=== PATIENT | male | born 1995 | race Caucasian/White ===

== ENCOUNTER → 2019-08-13 18:22 | Outpatient (BNVA) | payer BC, SELFPAY | PROVIDERS: Visit Provider Nurse Practitioner Family | DX: R50.9 Fever, unspecified (principal); J01.00 Acute maxillary sinusitis, unspecified | CPT/HCPCS: 87081; 87880 ==

== ENCOUNTER → 2019-12-03 11:15 | Outpatient (BNVA) | payer BC, SELFPAY | PROVIDERS: Visit Provider Nurse Practitioner Family | DX: R50.9 Fever, unspecified (principal); R05 Cough | CPT/HCPCS: 87635 ==

== ENCOUNTER 2020-03-10 08:51 | Emergency (ER) | payer BC, SELFPAY ==
[2020-03-10] VITALS (18 sets, daily range): BP systolic 108–148; BP diastolic 68–91; PULSE 62–108; RESP 8–26; TEMP 37.2; O2SAT 54–100; BMI 27.4
--- NOTE | 2020-03-10 09:11 | CT_ITS ---
WS: [id number] CT NECK TECHNIQUE: Contrast-enhanced CT of the neck with coronal and sagittal reformatted images. CLINICAL INFORMATION: swelling in submandibular space after wisdom tooth extractio COMPARISON: None. DLP: 679.[address] scans at [facility] use at least one of these dose optimization techniques: automat ed exposure control; mA and/or kV adjustment per patient size (includes targeted exams where dose is matched to clinical indication); or iterative reconstruction. FINDINGS: Parotid glands are normal. Enlargement of the right submandibular gland with inflammatory stranding a nd edema consistent with sialoadenitis. No obstructing calculi. Peripherally enhancing phlegmon/absce ss measuring 1.4 x 0.9 CM at the anterior apex of the gland adjacent to the angle of mandible. Inflam matory stranding and edema in the submandibular space. Thickening of the right platysma. Reactive rig ht submandibular lymph nodes. Inflammatory stranding and induration extends into the submental space. Mild right to left mass effec t on the oropharynx. Edema involving the oropharynx with thickening of the epiglottis and aryepiglott ic folds. Normal vocal cords. Edema extends into the right greater than left piriform sinuses. Indura tion and edema extends into the right parapharyngeal space.Small amount of retropharyngeal fluid and edema extending from C2 to C5. Postoperative changes of recent right wisdom tooth extraction in the r ight mandible. No evidence of osteomyelitis. Left submandibular gland is normal. Tiny left thyroid nodule measuring 3 mm. Lung apices are well ae rated. Mastoid air cells and paranasal sinuses are well aerated. CT/CT neck w con* [id number] IMPRESSION: 1. Right submandibular sialoadenitis with peripheral enhancing abscess/phlegmo n measuring 1.4 x 0.9 CM at the anterior apex of the gland. 2. Inflammatory stranding and edema about the right submandibular gland. Exten ding into the submandibular space and submental space. 3. Thin retropharyngeal fluid collection in the retropharyngeal space extendin g from C2 to C5. 4. Mild right to left mass effect on the airway. No critical airway stenosis. Moderate edema involving the oropharyngeal airway and pharyngeal soft tissues. 5. Postoperative changes of recent right wisdom tooth extraction. No evidence of osteomyelitis Notified Sanchez Martinez DO at 03/10/2020 10:11 AM.
--- NOTE | 2020-03-10 09:15 | ED_ITS ---
HPI - Dental/Oral General: Chief complaint: Shortness of Breath/Dyspnea Stated complaint: Hard time breathing Time Seen by Provider: 03/10/20 09:07 History of Present Illness: HPI Narrative: 24-year-old male presents emergency room last week he had a right lower molar extraction wisdom tooth. He had oral maxillary facial services. He has increased swelling on that side difficulty swallowing. He is on antibiotics he [facility] per his report. States pain is gotten progressively worse. he does not know the that he has had a fever at all. MD Complaint: tooth pain Onset (ago): day(s) Duration: constant Severity: severe Relieving factors: prescription analgesics Exacerbating factors: chewing, drinking fluids and swallowing Context: other (Recent dental extraction right lower molar) Associated symptoms: Reports odynophagia and sore throat; Denies fever(s) Treatment prior to arrival: other (Medication p.o.) Review of Systems Const: Denies: fever(s), chills, body aches, change in appetite, fatigue or malaise ENMT: Reports: odynophagia Card: Denies: chest pain, edema, dyspnea on exertion or orthopnea Resp: Denies: dyspnea, productive cough or non-productive cough GI: Denies: abdominal pain, nausea, vomiting, hematemesis, coffee ground emesis, diarrhea, constipation, bloating, hematochezia or melena : Denies: flank pain, dysuria, urinary frequency or urinary urgency Skin/Breast: Denies: rash or pruritus [facility] ED PFSH: Social History Smoking and tobacco status: never smoked Alcohol intake: never Physical Exam Const: COMMON NORMALS: no acute distress GENERAL APPEARANCE: cooperative and comfortable ORIENTATION/CONSCIOUSNESS: Yes awake, Yes oriented to person, Yes oriented to place and Yes oriented to time HENMT: COMMON NORMALS: normocephalic, atraumatic and hearing grossly normal bilaterally HEAD & SCALP: normocephalic and atraumatic OTHER: Tender submandibular swelling on the right side. No fluctuance examination of the gumline there is no evidence of swelling does appear to be some packing or sutures although is difficult to tell this patient is limited ability to open his mouth due to pain. Neck/C-Spine: COMMON NORMALS: no JVD Resp: COMMON NORMALS: normal respiratory effort, No retractions, No use of accessory muscles and clear to auscultation bilaterally AUSCULTATION: clear to auscultation bilaterally Cardio: COMMON NORMALS: no JVD, regular rate, regular rhythm and No murmurs present (Cardio) RATE: regular rate RHYTHM: regular rhythm GI: COMMON NORMALS: Soft to palpation and No hepatosplenomegaly present AUSCULTATION: Yes normoactive bowel sounds PALPATION: Yes Soft to palpation, No Tenderness to palpation present (GI), No Guarding due to palpation present (GI) and Yes No hepatosplenomegaly present Extremity: COMMON NORMALS: normal to inspection, capillary refill normal, no clubbing, cyanosis or edema, no calf tenderness and no pedal edema Neuro: SENSORIUM/ORIENTATION: Yes oriented to person, Yes oriented to place and Yes oriented to time Skin: COMMON NORMALS: no rashes or lesions noted GENERAL SKIN EXAM: no rashes or lesions noted Course Vital Signs: Vital signs: Vital Signs Temperature 98.9 F 03/10/20 08:59 Pulse Rate 74 03/10/20 12:17 Respiratory Rate 16 03/10/20 12:17 Blood Pressure 128/72 03/10/20 12:17 Pulse Oximetry 100 03/10/20 12:17 MDM - Dental/Oral MDM Narrative: Medical decision making narrative: During the ER course patient developed increasing difficulty with speaking and swallowing hoarseness of voice given the findings on the CT with deviation of the trachea is decided electively intubate. Because of the potential for difficulty I contacted anesthesia see their notes if initially a bronchoscopic guided intubation was attempted however patient coughed and struggled against since it was awake intubation. Ultimately was unsuccessful and was then intubated by the MANAGER HVAC using laryngoscope. This was successful confirmed by capnography auscultation and rising O2 sats. Chest x-ray as well confirmed good positioning. Discussed Dr. Stone is Dr. Coffey in the ER with he will accept the patient on transfer. Dr. Macias for oral maxillary facial we will see the patient when he arrives. Patient was transferred via ambulance as a life threat due to the fact that he had increased swelling and required intubation. Lab Data: Labs: Lab Results 03/10/20 03/10/20 Range/Units 09:30 09:30 WBC 17.2 H (4.0-10.0) 10^3/ uL RBC 5.69 H (4.1-5.3) 10^6/u L Hgb 13.0 (11.7-16.6) g/dL Hct 42.3 (42.0-52.0) % MCV 74.3 L (80-94) fL MCH 22.8 L (28.0-34.0) pg MCHC 30.7 (30.0-36.0) g/dL RDW 15.1 (12.1-15.1) % Plt Count 331 (130-400) 10^3/c mm MPV 9.9 (7.4-10.4) fL Neut % (Auto) 68.6 % Lymph % (Auto) 18.4 % [place] % (Auto) 11.4 % Eos % (Auto) 0.5 % Baso % (Auto) 0.2 % Neut # (Auto) 11.79 H (1.8-7.7) 10^3/u L Lymph # (Auto) 3.2 (0.8-4.8) 10^3/u L [place] # (Auto) 2.0 H (0.2-0.9) 10^3/u L Eos # (Auto) 0.1 (0.0-0.8) 10^3/u L Baso # (Auto) 0.0 (0.0-0.1) 10^3/u L Nucleated RBC % (a uto) 0 % Nucleated RBCs # 0.0 /100WBC Sodium 140 (136-145) mmol/L Potassium 3.6 (3.5-5.1) mmol/L Chloride 104 (98-107) mmol/L Carbon Dioxide 26 (22-29) mmol/L Anion Gap 13.6 (5-19) BUN 12 (6-20) mg/dL Creatinine 0.7 (0.7-1.2) mg/dL GFR Calculation 136.3 H (90-130) mL/min Glucose 90 (65-115) mg/dL Calculated Osmolal ity 289 (285-295) mOsm/k g Calcium 9.0 (8.5-10.5) mg/dL Total Bilirubin 0.5 (0.15-1.2) mg/dL AST 28 (0-40) U/L ALT 90 H (0-41) U/L Alkaline Phosphata se 64 (40-130) IU/L Total Protein 6.5 L (6.6-8.7) g/dL Albumin 4.0 (3.5-5.2) g/dL Globulin 2.5 (1.3-4.6) g/dL Discharge Plan Discharge Patient Disposition: Transfer to ED Clinical Impression: Sixto's angina Condition: Stable Prescriptions: No Action ondansetron 4 mg tablet,disintegrating 4 mg PO Q8H PRN (Reason: nausea and vomiting) Qty: 20 RF: 0 Coding Level of Care Code ED Burnisher for Kathyag Fwd Exam Comprehensive
[2020-03-10] MEDS: sodium chloride 0.9% 1,000 ML 999 ML IV (09:26)
[2020-03-10] MEDS: ondansetron 2 mg/ML SDV 2 mL 4 MG IVP (09:26)
[2020-03-10] MEDS: morphine 4 mg/mL SDV 1 mL IVP (09:26)
[2020-03-10] MEDS: iohexol 300 mg/mL 100 mL Btl IV (09:39)
[2020-03-10 09:44] LABS: Basophils % 0.2 %; Eosinophils # 0.1 10^3/uL (0.0-0.8); Eosinophils % 0.5 %; Hematocrit 42.3 % (42.0-52.0); Lymphocytes # 3.2 10^3/uL (0.8-4.8); Lymphocytes % 18.4 %; Mean Corpuscular HGB Conc 30.7 g/dL (30.0-36.0); Mean Corpuscular Hemoglobin 22.8 pg (28.0-34.0); Mean Corpuscular Volume 74.3 fL (80-94); Mean Platelet Volume 9.9 fL (7.4-10.4); Monocytes % 11.4 %; Neutrophils # 11.79 10^3/uL (1.8-7.7); Neutrophils % 68.6 %; Nucleated Red Blood Cells % 0 %; Platelet Count 331 10^3/cmm (130-400); Red Blood Count 5.69 10^6/uL (4.1-5.3); Red Cell Distribution Width 15.1 % (12.1-15.1); White Blood Count 17.2 10^3/uL (4.0-10.0)
[2020-03-10 10:02] LABS: Alanine Aminotransferase 90 U/L (0-41); Alkaline Phosphatase 64 IU/L (40-130); Anion Gap 13.6 (5-19); Aspartate Amino Transferase 28 U/L (0-40); Blood Urea Nitrogen 12 mg/dL (6-20); Carbon Dioxide 26 mmol/L (22-29); Chloride 104 mmol/L (98-107); Creatinine Clr Calc Pharmacy 151.1794; Globulin 2.5 g/dL (1.3-4.6); Glomerular Filtration Rate 136.3 mL/min (90-130); Glucose 90 mg/dL (65-115); Osmolality Calculated 289 mOsm/kg (285-295); Potassium 3.6 mmol/L (3.5-5.1); Sodium 140 mmol/L (136-145); Total Bilirubin 0.5 mg/dL (0.15-1.2); Total Protein 6.5 g/dL (6.6-8.7)
[2020-03-10] MEDS: morphine 4 mg/mL SDV 1 mL 8 MG IVP (10:22)
[2020-03-10] MEDS: vancomycin 1,000 MG in sodium chloride 0.9% 250 ML 250 MG IV (10:23)
[2020-03-10] MEDS: dexamethasone 10 mg/mL INJ IVP (11:06)
[2020-03-10] MEDS: lidocaine 2% viscous 15 mL UDC 30 ML MUCOUS MEM (11:48)
[2020-03-10] MEDS: glycopyrrolate 0.2 mg/mL SDV 2 mL IV (11:48)
[2020-03-10] MEDS: lidocaine 2% INJ 20 mL INJECTION (11:50)
[2020-03-10] MEDS: fentaNYL 50 mcg/mL INJ 2mL 100 MCG IVP (11:56)
[2020-03-10] MEDS: propofol 10 mg/mL SDV 20 mL 100 MG IVP ×2 (12:03→12:06)
[2020-03-10] MEDS: propofol 1,000 MG/100 ML INJ 6.7 MG IV (12:04)
--- NOTE | 2020-03-10 12:15 | ANES.PROC ---
Anesthesia Procedures Procedure/Date: 03/10/20 Intubation: Time Out Performed: Yes Consent: requested by attending/covering physician and emergency procedure Sedative (amount): other (Precedex 1 mcg/kg over 10 min bolus, followed by 0.7 mcg/kg/hr) Laryngoscope: Pascale (3.0) Assist Device Used: fiber optic device ET Tube Size: 8 ET Tube Uncuffed: Yes Tube Secured Depth (cm): 24 Tube Secured Location: lips Tube Placement Confirmation: visualized tube passing through cords, equal breath sounds bilaterally, no breath sounds over epigastrium, confirmation by capnometry and color change noted Patient Tolerated Procedure: well and no complications Intubation Complications: none Additional Comments: Glyco 0.2 mg IV, wit 2% viscous lidocaine gargle, and 2% nebulized lidocaine at 5 L min for 10 minutes. Attempted fiberoptic bronchoscope w/ good visualization of cords, but when tube was passed, patient moved/coughed ETT tip out. Patient quickly given propofol and intbuated by Jammie Alegria CRNA using MAC 3.0 and 8.0 cuffed ETT with adequate breath sounds, chest rise, and color change.
--- NOTE | 2020-03-10 12:28 | XRR_ITS ---
PROCEDURE INFORMATION: Exam: XR Chest, 1 View Exam date and time: 03/10/2020 12:36 PM Age: 24 years old Clinical indication: Device placement; Ett placement (vent status); Additional info: Post intubation TECHNIQUE: Imaging protocol: XR of the chest Views: 1 view. COMPARISON: No relevant prior studies available. FINDINGS: Tubes, catheters and devices: There is an endotracheal tube whose tip is 4.8 cm above the dominique. There is a nasogastric tube whose tip is in the body of the stomach. Lungs: Unremarkable. No consolidation. Pleural space: Unremarkable. No pleural effusion. No pneumothorax. Heart/Mediastinum: Unremarkable. No cardiomegaly. Bones/joints: Unremarkable. XR/XR chest 1V portable [id number] IMPRESSION: There are no acute concerning abnormalities.
[2020-03-10] MEDS: dexmedetomidine 400 MCG in sodium chloride 0.9% (100 ml) 100 ML 13.6 MCG IV (13:11)
--- NOTE | 2020-03-10 13:13 | PC.NURSE ---
Pt was set up for intubation at approx 1130. 18g IV established to right AC at this time, difficult airway cart placed at bedside, glidescope at bedside. Anesthesia at bedside, Dr Briones and QUILLER OPERATOR Wing Haines. Dr Martinez at bedside. Pt was given oral viscous lidocaine 2% mixed with glycopyrrolate 0.2mg swish and spit at 1148, aerosolized lidocaine given 10ml per nebulizer at 1150 by anesthesia. Pt given 100mcg Fent IVP by anesthesia at 1156. Oral airway inserted by anesthesia at 1200, tubed with a 6.5 tube at 1201. Propofol push of 100mg done at 1203 by Wing Haines CRNA. At 1204, pt noted to have decreasing sats and belly breathing. Pt extubated and placed on BVM at 15L. Oxygen sats down to 54% while extubating. See VS flowsheet for VS charting. At 1206, pt intubated with 8.0 tube, 23 at the lip. 100mg Propofol pushed again by Wing Haines CRNA. Pt placed on vent at 100% FiO2 at 1207. 14Fr OG placed at 1210, 18Fr العراقي placed at 1214, pt placed in gown.
== END 2020-03-10 13:14 ==
PROVIDERS: Emergency Provider Family Medicine
DX: K12.2 Cellulitis and abscess of mouth (principal)
CPT/HCPCS: 12345; 51702; 70491; 71045; 80053; 85025; 87040; 94002; 94640; 94799; 96365; 96366; 96367; 96368; 96375; 96376; 99284; 99285; J0330; J1100; J2270; J2405; J2704; J3010; J3370; J3490; J7030; J7050; Q9967

== ENCOUNTER 2020-10-15 13:46 | Outpatient (CLI) | payer BC, SELFPAY ==
--- NOTE | 2020-10-15 13:54 | XR_ITS ---
WS: [id number] Exam: XR lumbar spine 2-3V* [id number] Date/Time of Exam: 10/15/2020 1:54 PM Reason For Exam: LUMBAR RADICULPATHY Findings: In the AP projection, the lumbar spine is straight. The sacroiliac joints are open. The facet struc tures are bilaterally symmetrical. In the lateral projection, the lumbar curve is well maintained. The intervertebral disc spaces are intact. No fractures or anomalies of the lumbar spine are noted. XR/XR lumbar spine 2-3V* [id number] IMPRESSION: Negative lumbar spine.
== END 2020-10-15 13:47 | disposition home or self-care (01) ==
LOC: RAD 13:52
PROVIDERS: PCP Family Medicine; Visit Provider Family Medicine
DX: M54.16 Radiculopathy, lumbar region (principal)
CPT/HCPCS: 72100

== ENCOUNTER 2021-03-20 10:33 | Outpatient (CLI) | payer BC, SELFPAY ==
--- NOTE | 2021-03-20 10:45 | US_ITS ---
WS: [id number] RIGHT UPPER QUADRANT ULTRASOUND HISTORY: RUQ ABD PAIN COMPARISON: 03/07/2019 Liver: 16.0 cm in length. Normal size liver. No bile duct dilatation or mass. Gallbladder: Normally distended gallbladder with no stones or wall thickening. CBD: 0.3 cm Pancreas: Poorly visualized. Right kidney: 10.3 cm in length. Normal size and echogenicity. No hydronephrosis or mass. Aorta and IVC: Unremarkable abdominal aorta and IVC. No ascites. US/US gall bladder [id number] IMPRESSION: 1. Normal gallbladder. 2. Poorly visualized pancreas. 3. The remaining ultrasound is negative.
== END 2021-03-20 10:34 | disposition home or self-care (01) ==
LOC: RAD 10:39
PROVIDERS: PCP Family Medicine; Visit Provider Family Medicine
DX: R10.11 Right upper quadrant pain (principal)
CPT/HCPCS: 76705